=== PATIENT | male | born 1980 ===

== ENCOUNTER 2019-02-03 15:22 | Emergency (ER) | payer MEDICAID ==
--- NOTE | 2019-02-03 15:27 | ER Report ---
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 Pt states he started feeling poorly when he hi t [place]. States he is dizzy, nauseated, sob, headache and tired. PT states symptoms have not improved from [place] to [place] so he stopped in the ED. Pt states he usually does not drive this way. PT is not on any prophylaxis for altitude provention. No chest pain. REVIEW OF SYSTEMS: Constitutional: No fever, no chills. Eyes: No discharge. ENT: No sore throat. Cardiovascular: No chest pain, no palpitations. Respiratory: No cough, + shortness of breath. Gastrointestinal: No abdominal pain, no vomiting. Genitourinary: No hematuria. Musculoskeletal: No back pain. Skin: No rashes. Neurological: + headache, + dizzy Allergies: Coded Allergies: No Known Drug Allergies (Unverified , 02/03/19) Home Meds No Active Prescriptions or Reported Meds Past Medical/Surgical History Pmhx: boarderline HTN, hemorrhoids Hx Smoking: No Hx Alcohol Use: Yes (Rarely, twice a month) Constitutional Vital Sign - Last 24 Hours 02/03/19 15:26 Temp 97.8 Pulse 81 Resp 20 B/P (MAP) 130/86 Pulse Ox 93 O2 Delivery Room Air Physical Exam General Appearance: The patient is alert, has no immediate need for airway protection and no signs of toxicity. Eyes: Pupils equal and round no pallor or injection, EOMI ENT: no pharyngeal erythema or exudates, Mucous membranes are moist, TM are nl b/l Respiratory: There are no retractions, lungs are clear to auscultation. Cardiovascular: Regular rate and rhythm. pulses are equal and symmetrical Gastrointestinal: Abdomen is soft and non tender, no masses, bowel sounds normal, no guarding, no rigidity or rebound Neurological: Cranial nerves II-XII grossly intact, no sensory or motor loss Skin: Warm and dry, no rashes. Musculoskeletal: Neck is supple non tender, no vertebral tenderness Extremities are nontender, nonswollen and have full range of motion. DIFFERENTIAL DIAGNOSIS: After history and physical exam differential diagnosis was considered for altitude sickness, dehydration, electrolylte abnl, pneumonia, pe Medical Decision Making Data Points Result Diagram: 02/03/19 1528 02/03/19 1528 Laboratory Hematology Test 02/03/19 15:28 White Blood Count 13.1 k/uL (4.5-11.0) H Red Blood Count 5.60 M/uL (4.00-5.60) Hemoglobin 15.4 g/dL (14.0-18.0) Hematocrit 45.4 % (42.0-52.0) Mean Corpuscular Volume 81.1 fL (80.0-96.0) Mean Corpuscular Hemoglobin 27.5 pg (26.0-33.0) Mean Corpuscular Hemoglobin Concent 33.9 g/dL (32.0-36.0) Red Cell Distribution Width 14.1 % (11.5-14.5) Platelet Count 238 K/uL (150-450) Mean Platelet Volume 8.8 fL (7.2-11.1) Neutrophils (%) (Auto) 73.0 % (39.4-72.5) H Lymphocytes (%) (Auto) 21.3 % (17.6-49.6) Monocytes (%) (Auto) 4.1 % (4.1-12.4) Eosinophils (%) (Auto) 1.3 % (0.4-6.7) Basophils (%) (Auto) 0.3 % (0.3-1.4) Nucleated RBC Relative Count (auto) 0.1 /100WBC Neutrophils # (Auto) 9.6 K/uL (2.0-7.4) H Lymphocytes # (Auto) 2.8 K/uL (1.3-3.6) Monocytes # (Auto) 0.5 K/uL (0.3-1.0) Eosinophils # (Auto) 0.2 K/uL (0.0-0.5) Basophils # (Auto) 0.0 K/uL (0.0-0.1) Nucleated RBC Absolute Count (auto) 0.01 K/uL Chemistry Test 02/03/19 15:28 Sodium Level 137 mmol/L (137-145) Potassium Level 3.6 mmol/L (3.5-5.0) Chloride Level 102 mmol/L (98-107) Carbon Dioxide Level 24 mmol/L (22-30) Blood Urea Nitrogen 13 mg/dl (9-21) Creatinine 1.00 mg/dl (0.66-1.25) Glomerular Filtration Rate Calc > 60.0 Random Glucose 123 mg/dl (75-110) Calcium Level 9.0 mg/dl (8.4-10.2) Total Bilirubin 0.5 mg/dl (0.2-1.3) Aspartate Amino Transf (AST/SGOT) 33 U/L (0-35) Alanine Aminotransferase (ALT/SGPT) 47 U/L (0-56) Alkaline Phosphatase 103 U/L (0-126) Total Protein 7.9 g/dl (6.3-8.2) Albumin 4.2 g/dl (3.5-5.0) Coagulation Test 02/03/19 15:28 D-Dimer Quantitative (PE/DVT) < 0.27 ug/ml (0-0.50) EKG/Imaging Imaging napd ED Course/Re-evaluation Clinical Indication for ER IV: Hydration, IV Access ED Course check labs, start acetazolamide 02/03/2019 4:49:13 pm Pt feeling slightly better after fluids and medication but still has some symptoms. Pts labs are stable. Pts symptoms consistent with acute altitude sickness. Spoke [facility] pt and he was going to stay in [facility] but now thinks he will drive a little further west to go to a lower altitude. will write for acetazolemide to take on his way back home. Decision to Disposition Date: Feb 03, 2019 Decision to Disposition Time: 16:50 Depart Departure Latest Vital Signs Vital Signs Date Time Temp Pulse Resp B/P (MAP) Pulse Ox O2 Delivery O2 Flow Rate FiO2 02/03/19 15:26 97.8 81 20 130/86 93 Room Air Impression: Primary Impression: Altitude sickness Condition: Improved Disposition: HOME OR SELF-CARE New Scripts Acetazolamide (ACETAZOLAMIDE) 250 Mg Tablet 250 MG PO BID, #14 TAB Prov: KIMBERLY NULL DO 02/03/19 Patient Instructions: Mountain Sickness (ED) Additional Instructions: Your symptoms are most likely related to the high altitude (7,300 feet) above sea level. The treatment is to move to a lower altitude. You may also use tylenol for your headache. You can take acetazolamide twice a day to help reduce your symptoms. You do not need to take it if you are not having symptoms or if you move to a lower altitude. If you need to drive back thru [place] or [place] I recommend you start the acetazolamide a day before you reach the high altitude region. Problem Qualifiers Primary Impression: Altitude sickness Encounter type: initial encounter Qualified Codes: T70.29XA - Other effects of high altitude, initial encounter KIMBERLY NULL DO Feb 03, 2019 15:27
[2019-02-03] MEDS ORDERED: NS(*) 0.9% 1000 ML BAG 1,000 ML IV ONE (15:40)
[2019-02-03] MEDS ORDERED: acetaZOLAMIDE 250 MG TAB PO ONE (15:40)
[2019-02-03 15:51] LABS: PLATELET COUNT, AUTOMATED 238 K/uL (150-450)
[2019-02-03] MEDS ORDERED: ACETAMINOPHEN 325 MG TAB PO ONE (16:20)
[2019-02-03] MEDS ORDERED: DEXAMETHASONE SOD PHOS 10MG/ML IVP ONE (16:20)
--- NOTE | 2019-02-03 16:26 | RADIOLOGY IMAGING REPORT ---
FACILITY: [facility] PATIENT NAME: Derek Barlow : 1980 MR: [id number] V: [id number] EXAM DATE: ORDERING PHYSICIAN: KIMBERLY NULL TECHNOLOGIST: Location: [facility] [place] Patient: Derek Barlow : 1980 Visit/Account:[id number] Date of Sevice: 02/03/2019 CHEST PA LAT INDICATION: sob COMPARISON: None available FINDINGS: Heart size within normal limits. There is no focal infiltrate or lobar consolidation. There is no pneumothorax or pleural effusion. IMPRESSION: 1. No acute cardiopulmonary process. Report Dictated By: Jose Edgar at 02/03/2019 4:18 PM Report E-Signed By: Jose Edgar at 02/03/2019 4:18 PM WSN:[id number]
[2019-02-03] MEDS ORDERED: ACET250T19 PO (16:54)
[2019-02-03 17:00] VITALS: BP 138/80
== END 2019-02-03 17:18 | disposition home or self-care (01) ==
LOC: ER 15:32
DX: T70.29XA Other effects of high altitude, initial encounter (principal)
CPT/HCPCS: 71046; 82375; 85025; 85379; 96361; 96374; 99283; J1100; J7030; 82040; 82247; 82310; 82374; 82435; 82565; 82947; 84075; 84132; 84155; 84295; 84450; 84460; 84520